=== PATIENT | female | born 1975 | race Caucasian/White ===

== ENCOUNTER 2017-11-21 18:20 | Emergency (ER) | payer MEDICAID ==
[2017-11-21] MEDS: ONDANSETRON (ODT) 4 MG TAB ODT (20:41)
[2017-11-21] MEDS: ACET/BUTAL/CAFF TAB PO (20:47)
== END 2017-11-21 21:17 | disposition home or self-care (01) ==
LOC: FTE 18:20
DX: R51 Headache (principal); R11.2 Nausea with vomiting, unspecified
CPT/HCPCS: 99284; Z7502